=== PATIENT | female | born 1960 | race Caucasian/White ===

== ENCOUNTER → 2017-12-10 09:09 | Outpatient (CLI) | payer OTHER, SELFPAY ==
--- NOTE | 2017-12-10 09:11 | DI.MG.S_ITS ---
BILATERAL DIGITAL SCREENING MAMMOGRAM 3D/2D WITH CAD: 12/10/2017 CLINICAL: Routine screening. Comparison is made to exams dated: 09/29/2014 mammogram and 09/14/2009 mammogram - [facility]. There are scattered fibroglandular elements in both breasts. Current study was also evaluated with a Computer Aided Detection (CAD) system. No significant masses, calcifications, or other findings are seen in either breast. There has been no significant interval change. IMPRESSION: NEGATIVE There is no mammographic evidence of malignancy. A 1 year screening mammogram is recommended. This exam was interpreted at Station ID: [id number]. NOTE: For mammograms, a report in lay terms will be sent to the patient. Approximately 15% of breast malignancies will not be visualized mammographically. In the management of a palpable breast mass, a negative mammogram must not discourage biopsy of a clinically suspicious lesion. Electronically Signed By: Ej rodriguez/guille:12/10/2017 19:22:05 letter sent: Normal Exam ACR BI-RADS Category 1: Negative [id number]
== END ==
PROVIDERS: Family Provider Internal Medicine; PCP Internal Medicine; Visit Provider Obstetrics & Gynecology
DX: Z12.31 Encounter for screening mammogram for malignant neoplasm of breast (principal)
CPT/HCPCS: 77063; 77067

== ENCOUNTER → 2018-02-10 11:44 | Outpatient (CLI) | payer OTHER, SELFPAY | PROVIDERS: Family Provider Internal Medicine; PCP Internal Medicine | DX: Z23 Encounter for immunization (principal) | CPT/HCPCS: 90471; 90686 ==

== ENCOUNTER 2018-04-14 11:15 | Outpatient (RCR) | payer OTHER, SELFPAY ==
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
--- NOTE | 2018-03-03 17:06 | PT.OPPOC ---
Current Diagnoses Stress incontinence (female) (male) (03/03/18) Provider Visit Care Team Role Provider Type MARYCRUZ Mackey Family Provider Advanced [address] [employer] Clerk Primary Care Provider Specialty: Family Practice Address: [address] [place] [address], [id number] Email: [email or web address] Farrah Anderson MD Attending Provider Physician Specialty: MILK PROCESSING WORKER Address: [address] [place] [address], [id number] Email: [email or web address] Plan Of Care PT-OP-T Assessment and Plan Start: 11/19/17 11:38 Freq: Status: Active Protocol: Document 03/03/18 16:54 [facility] (Rec: 03/03/18 17:05 [facility] [email or web address]) Physical Therapy Assessment Progress Towards Goals Progress Towards Goals Progressing Toward Goals Assessment Summary Assessment Ju returns to Physical Therapy today after not being seen since the end of December. She has been renting a home NMES unit for the past 2 months and feels like it has really helped her to find her anterior pelvic floor. Leakage during the day at work has decreased significantly. She is still leaking with exercise and activities such a mowing the lawn. Today I initiated transverse abdominal stabilization and working on standing pelvic floor exercises. This dynamic stabilization may be beneficial to helping her decrease leakage with exericise. Ju would benefit from continued PT. Physical Therapy Plan Frequency and Duration Frequency of Treatment 1x/Week Duration of Treatment 8 weeks Plan of Care Start Date 03/03/18 Plan of Care End Date 04/28/18 Therapeutic Interventions Therapeutic Interventions Home Exercise Program Manual Therapy Neuromuscular Re-education Self-Care/Home Management Soft Tissue Mobilization Modalities Biofeedback Next Visit Focus/Plan Next Note Type Treatment Note Next Visit Plan progress dynamic lumbar stabilization as tolerated, continue progressing pelvic floor strength Plan of Care Dates Plan of Care Start Date 03/03/18 Plan of Care End Date 04/28/18 Please Sign and Return: I have reviewed this Plan of Care and certify that the skilled therapy services above are required to meet the patient?s needs. Physician Signature Date Printed Name and Credentials Clinical Instructor Signature Printed Name and Credentials
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
== END 2018-09-17 12:21 | disposition home or self-care (01) ==
LOC: PHYS 11:15
PROVIDERS: Family Provider Internal Medicine; PCP Internal Medicine; Visit Provider Obstetrics & Gynecology
DX: N39.3 Stress incontinence (female) (male) (principal)
CPT/HCPCS: 97110; 97112; 97161; 97535

== ENCOUNTER → 2018-12-02 07:01 | Outpatient (CLI) | payer OTHER, SELFPAY ==
[2018-12-02 07:58] LABS: BUN Creatinine Ratio 27.5 (6-22); Blood Urea Nitrogen 22 mg/dL (7-17); Carbon Dioxide 27 mmol/L (22-32); Chloride 105 mmol/L (98-107); Cholesterol 170 mg/dL (140-199); Estimated Glomerular Filt Rate > 60.0 mL/min (>60); Glucose 99 mg/dL (70-100); HDL Cholesterol 49 mg/dL (40-60); HEMOLYSIS < 15 (0-50); LDL Cholesterol Calculated 102 mg/dL (<100); Potassium 4.9 mmol/L (3.4-5.1); Sodium 139 mmol/L (137-145); Triglycerides 95 mg/dL (35-150)
[2018-12-02 09:05] LABS: Creatinine Urine Random 215.9 mg/dL
[2018-12-02 09:32] LABS: TSH w/ Reflex to FT4 2.64 uIU/mL (0.47-4.68)
[2018-12-02 10:07] LABS: Microalbumi Creatinin Ratio Ur 2.7 ug/mg CR (<30); Microalbumin Urine Random < 0.6 mg/dL (0-1.6)
== END ==
PROVIDERS: PCP Registered Nurse; Visit Provider Registered Nurse
DX: I10 Essential (primary) hypertension (principal)
CPT/HCPCS: 36415; 80048; 80061; 82043; 82570; 84443

== ENCOUNTER → 2019-02-26 08:27 | Outpatient (CLI) | payer OTHER, SELFPAY | PROVIDERS: PCP Registered Nurse | DX: Z23 Encounter for immunization (principal) | CPT/HCPCS: 90471; 90686 ==

== ENCOUNTER → 2019-04-22 07:46 | Outpatient (CLI) | payer OTHER, SELFPAY ==
--- NOTE | 2019-04-22 | DI.MG.S_ITS ---
BILATERAL DIGITAL SCREENING MAMMOGRAM 3D/2D WITH CAD: 04/22/2019 CLINICAL: Routine screening. Comparison is made to exams dated: 09/29/2014 mammogram and 09/14/2009 mammogram - [facility]. There are scattered fibroglandular elements in both breasts. Current study was also evaluated with a Computer Aided Detection (CAD) system. No significant masses, calcifications, or other findings are seen in either breast. There has been no significant interval change. IMPRESSION: NEGATIVE There is no mammographic evidence of malignancy. A 1 year screening mammogram is recommended. This exam was interpreted at Station ID: [id number]. NOTE: For mammograms, a report in lay terms will be sent to the patient. Approximately 15% of breast malignancies will not be visualized mammographically. In the management of a palpable breast mass, a negative mammogram must not discourage biopsy of a clinically suspicious lesion. Electronically Signed By: Radha overton/guille:04/22/2019 11:00:13 letter sent: Normal Exam ACR BI-RADS Category 1: Negative 3341F
== END ==
PROVIDERS: PCP Obstetrics & Gynecology; Visit Provider Registered Nurse
DX: Z12.31 Encounter for screening mammogram for malignant neoplasm of breast (principal)
CPT/HCPCS: 77063; 77067

== ENCOUNTER → 2020-02-17 | Outpatient (CLI) | payer OTHER, SELFPAY | PROVIDERS: PCP Obstetrics & Gynecology; Referring Provider Internal Medicine; Visit Provider Internal Medicine | DX: Z23 Encounter for immunization (principal) | CPT/HCPCS: 90471; 90686 ==

== ENCOUNTER → 2020-05-17 16:43 | Outpatient (CLI) | payer OTHER, SELFPAY ==
--- NOTE | 2020-05-17 | DI.MG.S_ITS ---
BILATERAL DIGITAL SCREENING MAMMOGRAM 3D/2D WITH CAD: 05/17/2020 CLINICAL: Routine screening. Comparison is made to exams dated: 04/22/2019 mammogram, 12/10/2017 mammogram, and 09/29/2014 mammogram - [facility]. There are scattered fibroglandular elements in both breasts. Current study was also evaluated with a Computer Aided Detection (CAD) system. No significant masses, calcifications, or other findings are seen in either breast. There has been no significant interval change. IMPRESSION: NEGATIVE There is no mammographic evidence of malignancy. A 1 year screening mammogram is recommended. This exam was interpreted at Station ID: [id number]. NOTE: For mammograms, a report in lay terms will be sent to the patient. Approximately 15% of breast malignancies will not be visualized mammographically. In the management of a palpable breast mass, a negative mammogram must not discourage biopsy of a clinically suspicious lesion. Electronically Signed By: Radha overton/guille:05/18/2020 09:05:20 letter sent: Normal Exam ACR BI-RADS Category 1: Negative 3341F
== END ==
PROVIDERS: PCP Obstetrics & Gynecology; Referring Provider Obstetrics & Gynecology; Visit Provider Obstetrics & Gynecology
DX: Z12.31 Encounter for screening mammogram for malignant neoplasm of breast (principal)
CPT/HCPCS: 77063; 77067

== ENCOUNTER → 2020-05-18 16:59 | Outpatient (CLI) | payer OTHER, SELFPAY ==
[2020-05-18] MEDS: COVID-19 VACC(MODERNA-1)/PF 100 MCG/0.5 ML VIAL IM (17:04)
== END ==
PROVIDERS: PCP Obstetrics & Gynecology; Visit Provider Internal Medicine
DX: Z23 Encounter for immunization (principal)
CPT/HCPCS: 0011A; 91301

== ENCOUNTER → 2020-06-16 07:30 | Outpatient (CLI) | payer OTHER, SELFPAY ==
[2020-06-16] MEDS: COVID-19 VACC #2, MRNA(MOD) 100 MCG/0.5 ML VIAL IM (07:36)
== END ==
PROVIDERS: PCP Obstetrics & Gynecology; Visit Provider Internal Medicine
DX: Z23 Encounter for immunization (principal)
CPT/HCPCS: 0012A; 91301

== ENCOUNTER → 2021-02-15 09:15 | Outpatient (CLI) | payer OTHER, SELFPAY | PROVIDERS: Referring Provider Internal Medicine; Visit Provider Internal Medicine | DX: Z23 Encounter for immunization (principal) | CPT/HCPCS: 90471; 90686 ==

== ENCOUNTER → 2021-03-30 10:08 | Outpatient (CLI) | payer OTHER, SELFPAY ==
[2021-03-30] MEDS: COVID-19 VACC #3, MRNA(MOD) 50 MCG/0.25 ML VIAL IM (10:10)
== END ==
PROVIDERS: Visit Provider Internal Medicine
DX: Z23 Encounter for immunization (principal)
CPT/HCPCS: 0013A; 91301

== ENCOUNTER → 2021-07-31 16:34 | Outpatient (CLI) | payer OTHER, SELFPAY ==
--- NOTE | 2021-07-31 | DI.MG.S_ITS ---
BILATERAL DIGITAL SCREENING MAMMOGRAM 3D/2D WITH CAD: 07/31/2021 CLINICAL: Routine screening. Comparison is made to exams dated: 05/17/2020 mammogram, 04/22/2019 mammogram, and 12/10/2017 mammogram - [facility]. There are scattered fibroglandular elements in both breasts. Current study was also evaluated with a Computer Aided Detection (CAD) system. No significant masses, calcifications, or other findings are seen in either breast. There has been no significant interval change. IMPRESSION: NEGATIVE There is no mammographic evidence of malignancy. A 1 year screening mammogram is recommended. This exam was interpreted at Station ID: [id number]. NOTE: For mammograms, a report in lay terms will be sent to the patient. Approximately 15% of breast malignancies will not be visualized mammographically. In the management of a palpable breast mass, a negative mammogram must not discourage biopsy of a clinically suspicious lesion. Electronically Signed By: Radha overton/guille:08/01/2021 09:09:39 letter sent: Normal Exam ACR BI-RADS Category 1: Negative 3341F
== END ==
PROVIDERS: Referring Provider Obstetrics & Gynecology; Visit Provider Obstetrics & Gynecology
DX: Z12.31 Encounter for screening mammogram for malignant neoplasm of breast (principal)
CPT/HCPCS: 77063; 77067

== ENCOUNTER → 2022-02-12 12:00 | Outpatient (CLI) | payer OTHER, SELFPAY | PROVIDERS: PCP Family Medicine; Referring Provider Internal Medicine; Visit Provider Internal Medicine | DX: Z23 Encounter for immunization (principal) | CPT/HCPCS: 90471; 90686 ==

== ENCOUNTER → 2022-03-29 07:03 | Outpatient (CLI) | payer OTHER, SELFPAY ==
[2022-03-29 08:42] LABS: Alanine Aminotransferase 25 IU/L (<35); Albumin 4.1 g/dL (3.5-5.0); Albumin Globulin Ratio 1.6 (1.0-2.8); Alkaline Phosphatase 59 U/L (38-126); Aspartate Aminotransferase 22 IU/L (14-36); BUN Creatinine Ratio 24.2 (6-22); Bilirubin Total 0.3 mg/dL (0.2-1.3); Blood Urea Nitrogen 23 mg/dL (7-17); Calcium 9.3 mg/dL (8.4-10.2); Carbon Dioxide 31 mmol/L (22-32); Chloride 102 mmol/L (98-107); Cholesterol 199 mg/dL (140-199); Estimated Glomerular Filt Rate > 60 mL/min (>60); Globulin 2.5 g/dL (1.7-4.1); Glucose 97 mg/dL (80-110); HDL Cholesterol 65 mg/dL (40-60); HEMOLYSIS < 15 (0-50); LDL Cholesterol Calculated 121 mg/dL (<100); Potassium 5.2 mmol/L (3.4-5.1); Sodium 139 mmol/L (137-145); Total Protein 6.6 g/dL (6.3-8.2); Triglycerides 63 mg/dL (35-150)
[2022-03-29 08:50] LABS: Creatinine Urine Random 147.5 mg/dL
[2022-03-29 08:54] LABS: Microalbumi Creatinin Ratio Ur 4.7 ug/mg CR (<30); Microalbumin Urine Random 0.7 mg/dL (0-1.6)
== END ==
PROVIDERS: PCP Family Medicine; Referring Provider Physician Assistant; Visit Provider Physician Assistant
DX: Z13.220 Encounter for screening for lipoid disorders (principal); Z13.6 Encounter for screening for cardiovascular disorders; I10 Essential (primary) hypertension
CPT/HCPCS: 36415; 80053; 80061; 82043; 82570

== ENCOUNTER → 2022-08-08 07:22 | Outpatient (CLI) | payer OTHER, SELFPAY ==
--- NOTE | 2022-08-08 | DI.MG.S_ITS ---
BILATERAL DIGITAL SCREENING MAMMOGRAM 3D/2D WITH CAD: 08/08/2022 CLINICAL: Routine screening. Comparison is made to exams dated: 07/31/2021 mammogram, 05/17/2020 mammogram, and 04/22/[address] - [facility]. There are scattered areas of fibroglandular density in both breasts (category b / 25%-50% glandular tissue). Current study was also evaluated with a Computer Aided Detection (CAD) system. No significant masses, calcifications, or other findings are seen in either breast. There has been no significant interval change. IMPRESSION: NEGATIVE There is no mammographic evidence of malignancy. A 1 year screening mammogram is recommended. Based on the Tyrer Cuzick model (a risk assessment model) the patient's lifetime risk is 6.7% and her 10 year risk is 2.8%. According to the ACR, ACS, and NCCN guidelines, an annual breast MRI exam along with mammogram is recommended if the patient's lifetime risk is 20% or greater. This exam was interpreted at Station ID: [id number]. NOTE: For mammograms, a report in lay terms will be sent to the patient. Approximately 15% of breast malignancies will not be visualized mammographically. In the management of a palpable breast mass, a negative mammogram must not discourage biopsy of a clinically suspicious lesion. Electronically Signed By: Radha overton/guille:08/08/2022 13:03:46 letter sent: Normal Exam ACR BI-RADS Category 1: Negative [id number]
== END ==
PROVIDERS: PCP Family Medicine; Referring Provider Family Medicine; Visit Provider Family Medicine
DX: Z12.31 Encounter for screening mammogram for malignant neoplasm of breast (principal)
CPT/HCPCS: 77063; 77067

== ENCOUNTER → 2023-01-07 09:15 | Outpatient (CLI) | payer OTHER, SELFPAY ==
--- NOTE | 2023-01-07 09:17 | DI.RAD.S_ITS ---
PROCEDURE: XR KNEE RT 3V INDICATIONS: right knee pain TECHNIQUE: 3 views of the knee were acquired. COMPARISON: [facility], , KNEE 3V LEFT, 04/18/2015, 15:46. FINDINGS: Bones: No fractures or dislocations. No suspicious bony lesions. Moderate tricompartmental arthritic change most severe medially. No erosions. Minimal progression since 2014. Soft tissues: No joint effusion. No suspicious soft tissue calcifications. IMPRESSION: Tricompartmental arthritic change. Dictated by: Heydi Ross M.D. on 01/07/2023 at 14:18 Approved by: Heydi Ross M.D. on 01/07/2023 at 14:19
== END ==
PROVIDERS: PCP Family Medicine; Referring Provider Family Medicine; Visit Provider Family Medicine
DX: M25.561 Pain in right knee (principal)
CPT/HCPCS: 73562

== ENCOUNTER → 2023-02-13 | Outpatient (CLI) | payer OTHER, SELFPAY | PROVIDERS: PCP Family Medicine; Referring Provider Family Medicine; Visit Provider Family Medicine | DX: Z23 Encounter for immunization (principal) | CPT/HCPCS: 90471; 90686 ==

== ENCOUNTER → 2023-08-13 | Outpatient (CLI) | payer OTHER, SELFPAY ==
--- NOTE | 2023-08-13 15:36 | DI.MG.S_ITS ---
BILATERAL DIGITAL SCREENING MAMMOGRAM 3D/2D WITH CAD: 08/19/2023 CLINICAL: Routine screening. Comparison is made to exams dated: 08/08/2022 mammogram, 07/31/2021 mammogram, and 05/17/2020 mammogram - [facility]. There are scattered areas of fibroglandular density in both breasts (category b / 25%-50% glandular tissue). Current study was also evaluated with a Computer Aided Detection (CAD) system. No significant masses, calcifications, or other findings are seen in either breast. There has been no significant interval change. IMPRESSION: NEGATIVE There is no mammographic evidence of malignancy. A 1 year screening mammogram is recommended. Based on the Tyrer Cuzick model (a risk assessment model) the patient's lifetime risk is 6.5% and her 10 year risk is 2.8%. According to the ACR, ACS, and NCCN guidelines, an annual breast MRI exam along with mammogram is recommended if the patient's lifetime risk is 20% or greater. This exam was interpreted at Station ID: [id number]. NOTE: For mammograms, a report in lay terms will be sent to the patient. Approximately 15% of breast malignancies will not be visualized mammographically. In the management of a palpable breast mass, a negative mammogram must not discourage biopsy of a clinically suspicious lesion. Electronically Signed By: Radha overton/guille:08/19/2023 11:58:13 letter sent: Normal Exam ACR BI-RADS Category 1: Negative 3341F
== END ==
PROVIDERS: PCP Family Medicine; Referring Provider Family Medicine; Visit Provider Family Medicine
DX: Z12.31 Encounter for screening mammogram for malignant neoplasm of breast (principal); R92.323 Mammographic fibroglandular density, bilateral breasts
CPT/HCPCS: 77063; 77067

== ENCOUNTER 2024-02-25 11:43 | Day surgery (SDC) | payer OTHER, SELFPAY ==
--- NOTE | 2024-02-25 | PATH_ITS ---
[facility] Accession Number: [id number] No. of containers..01 Tissue . 01 Material submitted: . colon - COLON, DESIGNATED TWENTY . 01 Clinical history: . R/O POLYP . 01 Diagnosis: COLON, DESIGNATED TWENTY: Colonic mucosa with mild mucosal hyperplasia. No neoplasm identified. [facility] 02/26/20241724 Local . 01 Electronically signed: . Frantz Brown MD, Pathologist NPI- [id number] . 01 Gross description: . TWENTY: Received in formalin is 1 fragment(s) of hollins, soft tissue measuring 0.3 x 0.3 x 0.2 cm submitted entirely in 1 cassette(s) /[facility] 02/26/20241724 Local . 01 Pathologist provided ICD-10: K63.5 . 01 CPT . 748753 Specimen Comment: A courtesy copy of this report has been sent to [phone] Performed at: [address] [facility] [address], [place], [place] [id number] MD Frantz Brown MD Phone: [phone]
[2024-02-25 12:06] VITALS: BP 147/82; PULSE 86; RESP 10; TEMP 36.1; O2SAT 95
--- NOTE | 2024-02-25 12:43 | PM.HP.1 ---
History of Present Illness History of Present Illness Chief complaint: Screening Colonoscopy Narrative: Ten year screening PFSH Surgical History (Updated 09/09/17 @ 05:19 by Conversion Provider) Status post colonoscopy Status post laparoscopy History of third molar tooth extraction Family History (Updated 10/29/13 @ 00:00 by Conversion Provider) Father Cancer Mother Age: 93 Hypercholesterolemia Social History Smoking Status: Former smoker alcohol intake: current Meds Home Medications and Allergies Home Medications Medication Instructions Recorded Confirmed Type cholecalciferol (vitamin D3) 50 2,000 iu PO QDAY ##0 10/14/11 02/25/24 History mcg (2,000 unit) capsule (Vitamin D3) MULTIVITAMIN (One Daily 1 tab PO ##0 01/09/12 12/02/22 History Multivitamin) Fish Oil 1,000 mg PO QDAY ##0 05/27/12 12/02/22 History alprazolam 0.25 mg tablet 0.25 mg PO Q12HP PRN anxiety 12/02/22 02/25/24 History progesterone micronized 100 mg 100 mg PO QAM #90 caps 02/24/23 02/25/24 Rx capsule trazodone 50 mg tablet See Rx Instructions .Route 03/10/23 02/25/24 Rx .COMPLEX #90 tabs estradiol 0.05 mg/24 hr semiweekly 1 patch transdermal 2XW #24 patches 10/20/23 Rx transdermal patch atenolol 25 mg tablet 25 mg PO DAILY #90 tabs 11/04/23 02/25/24 Rx Allergies Allergy/AdvReac Type Severity Reaction Status Date / Time sumatriptan Allergy Mild Palpitation Verified 02/25/24 11:57 s SENSITIVE TO PAIN MEDS Allergy Unknown Uncoded 12/02/22 13:53 Exam Vital Signs (past 8 hours): - 02/25/24 12:06 Temperature 97.0 F L Pulse Rate 86 Respiratory Rate 10 L Blood Pressure 147/82 H Pulse Oximetry 95 Oxygen Delivery Method Room Air Oxygen Delivery Method Room Air Narrative Exam Narrative: Oropharynx free of lesions Chest clear to auscultation percussion Cardiac exam reveals no S3 or murmur Assessment & Plan Assessment & Plan narrative: Ten year screening colonoscopy. Risks, benefits, alternatives have been explained. Time-Based Coding :: [TOTAL MINUTES] spent with patient and on the chart (including review of chart, obtaining history, exam, reviewing outside data, placing orders, documenting exam and treatment plan, and counseling patient) on [DATE].
--- NOTE | 2024-02-25 12:44 | PM.OP.COLON ---
Operative Date/Time/Diagnoses Date of procedure: 02/25/24 Pre-op diagnosis: See indication and findings Procedure & Clinicians Study performed: Colonoscopy Indications: Ten year screening Surgeon: Shelly Caceres Procedure Notes Procedure in detail: After informed consent was obtained the patient was placed in left lateral decubitus position. The video colonoscope was introduced the rectum slowly advanced cecum. Preparation was good. On slow withdrawal mucosa was carefully examined. The scope was removed. The patient tolerated procedure well. Blood loss none Complications none Sedation mac Findings 1. Swollen fold at approximately 20 cm. This was cold biopsied to rule out adenoma (doubt) 2. Otherwise negative colonoscopy to cecum I expect these biopsies be negative and patient should follow-up colonoscopy in 10 years.
[2024-02-25 13:09] VITALS: BP 139/94; PULSE 84; RESP 14; TEMP 36.2; O2SAT 97
[2024-02-25 13:14] VITALS: BP 119/77; PULSE 83; RESP 13; O2SAT 95
[2024-02-25 13:18] VITALS: BP 121/78; PULSE 81; RESP 14; O2SAT 96
[2024-02-25 13:21] VITALS: BP 156/84; PULSE 73; RESP 14; TEMP 36.2; O2SAT 95
== END 2024-02-25 13:36 | disposition home or self-care (01) ==
PROVIDERS: PCP Family Medicine; Referring Provider Internal Medicine Gastroenterology; Visit Provider Internal Medicine Gastroenterology
PROC: 0DJD8ZZ Inspection of Lower Intestinal Tract, Via Natural or Artificial Opening Endoscopic (ICD-10-PCS; CPT 45378; principal; 2024-02-25 13:00)
DX: Z12.11 Encounter for screening for malignant neoplasm of colon (principal); K63.89 Other specified diseases of intestine
CPT/HCPCS: 45380; J2704

== ENCOUNTER → 2024-03-04 | Outpatient (CLI) | payer OTHER, SELFPAY | PROVIDERS: PCP Family Medicine; Referring Provider Internal Medicine; Visit Provider Internal Medicine | DX: Z23 Encounter for immunization (principal) | CPT/HCPCS: 90471; 90656 ==

== ENCOUNTER → 2024-11-29 15:42 | Outpatient (CLI) | payer OTHER, SELFPAY ==
--- NOTE | 2024-11-29 15:43 | DI.MG.S_ITS ---
MM screening mammo BI: 11/29/2024. BI-RADS: 1 CLINICAL: 63-year old female for bilateral screening mammogram. Tyrer-Cuzick lifetime risk of 6.2%. No personal or first-degree family history of breast cancer. PRIOR EXAMS 08/19/2023, 08/08/2022, 07/31/2021, 05/17/2020, MAMMOGRAPHY TECHNIQUE: 2D and 3D (tomosynthesis) digital mammographic views obtained, with additional images as needed for full coverage. Current study was also evaluated with a Computer Aided Detection (CAD) system. DENSITY B. There are scattered areas of fibroglandular density. MAMMOGRAPHY FINDINGS Bilateral: No suspicious mass, asymmetry, microcalcification, or other abnormality seen. IMPRESSION: * No evidence of malignancy. RECOMMENDATIONS Bilateral * Annual screening mammography. OVERALL ASSESSMENT CATEGORY BI-RADS-1: Negative. The [employer] recommends annual screening mammography beginning at age 40 for women with average risk of breast cancer. ELECTRONICALLY SIGNED: Isaac Cabrear M.D. on 11/30/2024 at 06:41:25 AM PT Interpreting Station ID: [id number]
== END ==
LOC: MAMMO 15:42
PROVIDERS: PCP Family Medicine; Referring Provider Family Medicine; Visit Provider Family Medicine
DX: Z12.31 Encounter for screening mammogram for malignant neoplasm of breast (principal)
CPT/HCPCS: 77063; 77067